=== PATIENT | female | born 1975 | race Caucasian/White ===

== ENCOUNTER → 2018-06-22 | Outpatient (CLI) | payer BC ==
--- NOTE | 2018-06-22 14:31 | MM ---
Reason for exam: screening (asymptomatic). Baseline mammogram. History: Took hormonal contraceptives for 1 year beginning at age 20. Physical Findings: Nurse did not find any significant physical abnormalities on exam. MG 3D Screening Mammo W/Cad Bilateral CC and MLO view(s) were taken. The breast tissue is heterogeneously dense. This may lower the sensitivity of mammography. Finding: There is a 7 mm equal density (isodense), oval mass in the inner quadrant of the right breast. These results were verbally communicated with the patient and result sheet given to the patient on 06/22/18. ASSESSMENT: Incomplete: need additional imaging evaluation, BI-RAD 0 RECOMMENDATION: Ultrasound of the right breast.
--- NOTE | 2018-06-22 14:33 | USB ---
Reason for exam: additional evaluation requested from abnormal screening. History: Took hormonal contraceptives for 1 year beginning at age 20. Physical Findings: Breast exam preformed at baseline screening. US Breast Workup Limited RT Right limited breast ultrasound including focal area of concern, retroareolar and axilla demonstrates a 0.4 x 0.4 x 0.4cm oval, cystic complex lesion at 1 o'clock. These results were verbally communicated with the patient and result sheet given to the patient on 06/22/18. ASSESSMENT: Suspicious, BI-RAD 4 RECOMMENDATION: Ultrasound core biopsy of the right breast. Called Dr. Mckeon with mammographic findings and has scheduled an appointment for the patient for 07/27/18 at 11:[address] Paredes. Biopsy scheduled for 07/31/18 at 12:20. PRELIMINARY REPORT CALLED AND FAXED TO DR. PAREDES ON 06/22/18.
== END | disposition home or self-care (01) ==
LOC: RADMAMWWP 12:43
PROVIDERS: ATTEND Family Medicine
DX: Z12.31 Encounter for screening mammogram for malignant neoplasm of breast (principal)
CPT/HCPCS: 77063; 77067

== ENCOUNTER → 2018-07-27 | Outpatient (CLI) | payer BC ==
[2018-07-27 11:12] VITALS: BP 138/87; PULSE 77; RESP 16; TEMP 98.3; BMI 23.5
--- NOTE | 2018-07-27 11:33 | P.GSHP ---
History of Present Illness H&P Date: 07/27/18 Chief Complaint: Radiographic abnormality right breast This is a 42-year-old white female who is status post mammogram [place] [id number]. The findings revealed a 7 mm equal density mass in the inner quadrant of the right breast. This was confirmed on ultrasound to be most likely a complex cystic lesion however biopsy was recommended. The patient does not feel anything in her breast of concern. This is her first mammogram. The patient has no nipple discharge or skin changes of concern. She does not relate any recent trauma to her breast. She drinks pop, 2 20 oz bottles/day, pepsi. Mountain Dew. She also drinks 2 cups coffee/day. She smokes 1/PPD. she is not exposed to second hand smoke. She does not take hormones or control pills. She does not eat much chocolate. Family history: 1.maternal grandmother: lung 2. paternal uncle: colon 3. both grandfathers: prostate cncer Hormonal history: Menarche:14 , breast fed: yes, first at 32 periods: Regular control pills: Negative Hormones: Negative Past Surgical History: 1. wisdom teeth Past medical history: 1. Graves Disease/ now hypothyroid 2. HTN Social History: smoke: 1/PPD alcohol: 1/month drugs: Marijuana occasionally - Constitutional Constitutional: Denies chills, Denies fever - EENT Eyes: denies blurred vision, denies pain Ears: deny: decreased hearing, tinnitus Ears, nose, mouth and throat: Denies headache, Denies sore throat - Breasts Breasts: bilateral: as per HPI - Cardiovascular Cardiovascular: Reports high blood pressure - Respiratory Comment: smoker since 20 Respiratory: Denies cough, Denies 7 - Gastrointestinal Gastrointestinal: Denies abdominal pain, Denies diarrhea, Denies nausea, Denies vomiting - Genitourinary (Female) Genitourinary: Denies dysuria, Denies hematuria - Menstruation Menstruation: Reports period normal - Musculoskeletal Musculoskeletal: Denies myalgias - Integumentary Comment: Zahira Chilblains in toes Integumentary: Denies pruritus, Denies rash - Neurological Comment: Zahira Neurological: Reports numbness, Reports weakness - Psychiatric Psychiatric: Denies anxiety, Denies depression - Endocrine Comment: hypothyroid - Hematologic/Lymphatic Comment: chilblains, Reynauds - Allergic/Immunologic Allergic/Immunologic: Reports as per HPI Past Medical History History of Any Multi-Drug Resistant Organisms: None Reported Smoking Status: Current every day smoker Medications and Allergies Home Medications Medication Instructions Recorded Confirmed Type Levothyroxine Sodium [Synthroid] 125 mcg PO DAILY 07/27/18 07/27/18 History Metoprolol Succinate (ER) [Toprol 50 mg PO DAILY 07/27/18 07/27/18 History Xl] Allergies Allergy/AdvReac Type Severity Reaction Status Date / Time amoxicillin Allergy Rash/Hives Unverified 07/27/18 11:13 sulfamethoxazole Allergy Nausea & Unverified 07/27/18 11:13 [From Bactrim] Vomiting trimethoprim [From Bactrim] Allergy Nausea & Unverified 07/27/18 11:13 Vomiting Surgical - Exam Vital Signs Temp Pulse Resp BP Pulse Ox 98.3 F 77 16 138/87 100 07/27/18 11:09 07/27/18 11:09 07/27/18 11:09 07/27/18 11:09 07/27/18 11:09 BMI 23.5 - General well developed, well nourished, no distress - Eyes normal ocular movement - ENT no hearing loss, no congestion - Neck no masses, trachea midline - Respiratory normal expansion, normal respiratory effort, clear to percussion, clear to ausc ultation - Cardiovascular Rhythm: regular Heart Sounds: normal: S1, S2 - Abdomen Abdomen: soft, non tender, no guarding, no rigid, no rebound - Integumentary no rash, no abnormal pigmentation - Neurologic no disoriented, no combative - Musculoskeletal normal gait, normal posture - Psychiatric oriented to time, oriented to person, oriented to place, speech is normal, memory intact breast exam: right breast: Multi-positional exam no dominant masses or nodules of concern Right axilla: No adenopathy of concern Left breast: Multi-positional exam no dominant masses or nodules of concern Left axilla: No adenopathy of concern Size 36 B Results Mammogram and ultrasound reports reviewed Assessment and Plan Assessment: Impression: 1. Mammogram and ultrasound abnormality right breast 2. Fibrocystic breast changes 3. High caffeine intake 4. Did not phenomenon 5. Chilblains 6. Nicotine dependence 7. Hypertension 8. hypothyroid The patient is scheduled for a ultrasound core biopsy of the right breast. This may be a cystic lesion related to her high caffeine intake. We have discussed that and she is going to try to cut down and the a. She also understands that nicotine may exacerbate this. Plan: 1. Decrease caffeine and nicotine intake 2. Ultrasound core biopsy right breast 3. Follow-up after ultrasound core biopsy 4. Medical management of medical conditions CC: Dr. Mckeon
== END ==
LOC: WWCWWP 10:53
PROVIDERS: ATTEND Surgery
DX: Z53.9 Procedure and treatment not carried out, unspecified reason (principal)

== ENCOUNTER → 2018-08-04 | Outpatient (CLI) | payer BC ==
--- NOTE | 2018-08-04 13:17 | P.PN ---
Subjective Progress Note Date: 08/04/18 Principal diagnosis: status post core biopsy on 07-31-18 The patient is a 42-year-old white female status post right breast ultrasound core biopsy. This revealed fibrocystic changes negative for malignancy. The patient has no complaints related to the biopsy. Objective - Constitutional General appearance: Present: average body habitus - EENT Eyes: Present: EOMI ENT: Present: hearing grossly normal - Neck Neck: Present: normal ROM - Respiratory Respiratory: bilateral: CTA - Cardiovascular Rhythm: regular Heart sounds: normal: S1, S2 - Integumentary Integumentary: Present: normal turgor - Musculoskeletal Musculoskeletal: Present: gait normal, strength equal bilaterally - Psychiatric Psychiatric: Present: A&O x's 3, appropriate affect, intact judgment & insight - Additional findings Additional findings: right breast exam: Examination of biopsy site shows mild ecchymosis, no evidence of infection, small hematoma at the site of biopsy Assessment and Plan Assessment: Impression: 1. Fibrocystic changes right breast ultrasound core biopsy 2. Hypothyroid 3. Hypertension 4. Tube remains 5. The knots disease Plan: 1. Ultrasound of the right breast in 6 months with physician exam at that time 2. Medical management of medical conditions CC:Dr. Mckeon
[2018-08-04 16:23] VITALS: BP 133/88; PULSE 85; RESP 18; TEMP 98.4; BMI 23.5
== END ==
LOC: WWCWWP 12:37
PROVIDERS: ATTEND Surgery
DX: Z53.9 Procedure and treatment not carried out, unspecified reason (principal)

== ENCOUNTER → 2019-08-02 | Outpatient (CLI) | payer BC ==
--- NOTE | 2019-08-02 11:35 | USB ---
Reason for exam: follow-up at short interval from prior study. History: Benign US biopsy breast VAD RT of the right breast, July 31, 2018. Took hormonal contraceptives for 1 year beginning at age 20. Physical Findings: Nurse did not find any significant physical abnormalities on exam. US Breast RT Right complete breast ultrasound includes all four quadrants, the retroareolar region and axilla. Finding demonstrates no cystic or solid lesion seen. These results were verbally communicated with the patient and result sheet given to the patient on 08/02/19. ASSESSMENT: Negative, BI-RAD 1 RECOMMENDATION: Routine screening mammogram of both breasts. Patient is due for mammogram.
== END | disposition home or self-care (01) ==
LOC: RADUSWWP 10:13
PROVIDERS: ATTEND Surgery
DX: R92.8 Other abnormal and inconclusive findings on diagnostic imaging of breast (principal)

== ENCOUNTER → 2024-08-02 | Outpatient (CLI) | payer BC ==
--- NOTE | 2024-08-02 13:31 | MM ---
Reason for Exam: Screening (asymptomatic). Last mammogram was performed 6 year(s) and 1 month(s) ago. Patient History: Menarche at age 14. First Full-Term at age 32. Late child-bearing (after 32). Patient has history of breast feeding. Hormonal Contraceptives for 1 year from age 18 until age 20. 07/31/2018, Benign Core Biopsy on the right side. Risk Values: Breanna 5 year model risk: 1.7%. NCI Lifetime model risk: 15.3%. Prior Study Comparison: 06/22/2018 Bilateral Screening Mammogram, [facility]. 07/31/2018 Right Diagnostic Mammogram, [facility]. Tissue Density: The breasts are heterogeneously dense, which may obscure small masses. Findings: Analyzed By CAD. Right breast biopsy clip. Right breast: There is no suspicious group of microcalcifications or new suspicious mass. Left breast: There is no suspicious group of microcalcifications or new suspicious mass. Overall Assessment: Benign, BI-RAD 2 Management: Screening Mammogram of both breasts in [address] [facility] will attempt to contact patient to return for supplemental views and ultrasound if indicated. Patient should continue monthly self-breast exams. A clinical breast exam by your physician is recommended on an annual basis. This exam should not preclude additional follow-up of suspicious palpable abnormalities. Note on Breanna scores and lifetime risk: 1. A Breanna score greater than 3% is considered moderate risk. If this is the case, consider specialist referral to assess eligibility for a risk reducing agent. 2. If overall lifetime risk for the development of breast cancer is 20% or higher, the patient may qualify for future screening with alternating mammogram and breast MRI. [facility], , 08/02/2024 1:29 PM. Electronically signed and approved by: Alexandru De La Vega DO
== END | disposition home or self-care (01) ==
LOC: RADMAMWWP 13:01
PROVIDERS: ATTEND Family Medicine
DX: Z12.31 Encounter for screening mammogram for malignant neoplasm of breast (principal); R92.333 Mammographic heterogeneous density, bilateral breasts; Z92.0 Personal history of contraception
CPT/HCPCS: 77063; 77067